=== PATIENT | male | born 1975 | race Caucasian/White ===

== ENCOUNTER 2023-07-13 14:04 | Emergency (ER) | payer SELFPAY ==
[2023-07-13 14:13] VITALS: BP 184/102; PULSE 85; RESP 16; TEMP 36.5; O2SAT 99; BMI 25.0
--- NOTE | 2023-07-13 14:28 | DI.RAD.S_ITS ---
PROCEDURE: XR SHOULDER LT MIN 2V INDICATIONS: fall 8 ft, shoulder/scapula pain TECHNIQUE: 3 views of the shoulder were acquired. COMPARISON: [facility], CR, XR CLAVICLE LT, 07/13/2023, 14:29. FINDINGS: Bones: There is a comminuted, displaced left clavicular diaphyseal fracture. The scapula and the proximal humerus appear intact. There is a displaced lateral left 3rd rib fracture and a displaced posterior left 4th rib fracture. There may be a minimally displaced 5th rib fracture is well. Soft tissues: No suspicious soft tissue calcifications. No pneumothorax visualized. IMPRESSION: 1. Comminuted displaced left femoral diaphyseal clavicular fracture. 2. Displaced left 3rd and 4th rib fractures and possible posterior 5th rib fracture. 3. No pneumothorax. Dictated by: Rossy Canales M.D. on 07/13/2023 at 15:28 Approved by: Rossy Canales M.D. on 07/13/2023 at 15:31
--- NOTE | 2023-07-13 14:28 | DI.CT.S_ITS ---
PROCEDURE: CT HEAD/BRAIN WO CON INDICATIONS: FALL 8FT WITH L HEAD TRAUMA TECHNIQUE: Noncontrast 4.5 mm thick angled axial sections acquired from the foramen magnum to the vertex, with coronal and sagittal reformats. For radiation dose reduction, the following was used: automated exposure control, adjustment of mA and/or kV according to patient size. COMPARISON: [facility], CR, XR SHOULDER LT MIN 2V, 07/13/2023, 14:29. [facility], CR, XR CLAVICLE LT, 07/13/2023, 14:29. FINDINGS: Image quality: Excellent. CSF spaces: Basal cisterns are patent. No extra-axial fluid collections. Ventricles are normal in size and shape. Brain: There is a likely small amount of subarachnoid hemorrhage involving the superior left frontal lobe, as on series 2, image 26 and on series 5, image 18. No midline shift. No intracranial masses. Montero-white matter interface is normal. Skull and face: At least moderate hematoma can be seen involving the left parietal region. No underlying calvarial fracture is seen. Calvarium and visualized facial bones are intact, without suspicious lesions. Sinuses: Visualized sinuses and mastoids are clear. IMPRESSION: There is a likely small amount of subarachnoid hemorrhage involving the superior left frontal lobe. - Please consider short-term follow-up in approximately 6 hours. There is a left posterior scalp hematoma seen, without an associated calvarial fracture. Note: Case discussed by telephone with Dr. Yates at 3:04 p.m. [place] time on July 13, 2023. Dictated by: Nir Gomes M.D. on 07/13/2023 at 14:01 Approved by: Nir Gomes M.D. on 07/13/2023 at 14:05
--- NOTE | 2023-07-13 14:28 | DI.RAD.S_ITS ---
PROCEDURE: XR CLAVICLE LT INDICATIONS: fall 8ft, clavicle pain TECHNIQUE: 2 views of the clavicle were acquired. COMPARISON: None. FINDINGS: Bones: There is a comminuted, displaced fracture of the left clavicular diaphysis. Soft tissues: No suspicious soft tissue calcifications. IMPRESSION: Comminuted, displaced left clavicular diaphyseal fracture. Dictated by: Rossy Canales M.D. on 07/13/2023 at 15:21 Approved by: Rossy Canales M.D. on 07/13/2023 at 15:23
--- NOTE | 2023-07-13 14:29 | ED.TRAUMA ---
HPI - Trauma General Chief Complaint: Extremity Injury, Upper Stated Complaint: fell off room possible broke collar bone shoulder Time Seen by Provider: 07/13/23 14:18 Source: patient Mode of arrival: Ambulatory History of Present Illness HPI narrative: 48-year-old male with no reported past medical history presents by private vehicle for head injury that occurred at approximately 9:00 a.m. patient is a fish smoker and his boots slipped on slippery material and he fell approximately 8 ft, hitting his left shoulder and left head against the ground. Denies loss of consciousness, denies use of blood thinners. Patient states his primary concern is left shoulder pain in his concerned he may have broken his collarbone. Denies numbness, weakness, tingling, headache, blurred vision, neck pain, any other complaints at this time. Related Data Previous Rx's Medication Instructions Recorded hydrocodone 5 mg-acetaminophen 325 1 tab PO Q6H PRN pain #14 tabs 07/13/23 mg tablet methocarbamol 750 mg tablet 750 mg PO TID #30 tabs 07/13/23 Allergies Allergy/AdvReac Type Severity Reaction Status Date / Time No Known Drug Allergies Allergy Verified 07/13/23 14:21 Review of Systems Review of Systems Narrative: Negative except as noted above Patient History Social History Smoking Status: Current every day smoker Smoking Status: Current every day smoker tobacco type: cigarettes Substance Use Type: marijuana Exam Initial Vital Signs Initial Vital Signs: Vital Signs Temperature 97.7 F 07/13/23 14:13 Pulse Rate 85 07/13/23 14:13 Respiratory Rate 16 07/13/23 14:13 Blood Pressure 184/102 H 07/13/23 14:13 Pulse Oximetry 99 07/13/23 14:13 Oxygen Delivery Method Room Air 07/13/23 14:13 Const: Awake, alert, no acute distress, nontoxic appearing Head: Scalp contusion left parietal scalp Eyes: PERRL, EOMI, conjunctiva normal Cardiac: regular rate, regular rhythm RESP: unlabored, clear bilaterally, no wheezing GI: Atraumatic, soft, nontender, nondistended, no rebound, no guarding MSK: TTP over L clavicular region, decreased ROM L shoulder due to pain. 2+ radial pulses, sensation intact and equal Skin: Warm, Dry, intact, no rashes Neuro: AO x3, CN II-XII grossly intact, moves all extremities Psych: affect normal, mood normal, not suicidal, not homicidal Scores Slovak CT Head Rule Dangerous Mechanism (pedestrian vs. mv, occupant ejected from mv, fall from >3 ft or > 5 stairs): Yes Course Course Course Narrative: Overall well-appearing patient with head injury and shoulder pain after a fall approximately 8 ft. Since the fall was 8 ft he does score moderate risk on Slov[place] head CT rule and it is recommend to obtain a CT scan. We will give pain medications and XR imaging of shoulder/clavicle Orders Ordered: Discontinued Medications Hydrocodone Bitart/Acetaminophen (Hydrocodone/Acet 5/325 Tablet) 2 tab PO NOW ONE Stop: 07/13/23 14:29 Last Admin: 07/13/23 14:32 Dose: 2 tab Documented By: ALEXANDREA Reevaluation(s) Reevaluation #1: Patient resting comfortably in bed, there is a displaced clavicle fracture on the left-hand side, subsequently placed in sling. There also appeared to be some left-sided broken ribs, however patient states that he is broken those ribs previously and he does not have pain in the indicated region on the chest x-ray. I received a call from Radiology stating that the CT of the head was concerning for possible very small subarachnoid hemorrhage. Radiology recommended repeat CT in 6 hours to assess for spread. CT results discussed with patient, he states that he can not stay 6 hours for a repeat scan because if he does not he will lose his ride, and he lives in [facility] [place]. I explained risks of leaving before a repeat CT scan could be obtained including worsening bleeding, neurologic dysfunction, and even . Patient states that he understands his risks and still does not want to stay for repeat scan. He says he is no headache, no blurred vision, he really only came to get his collar bone evaluated. Patient was strongly recommended that if he develops any headache, blurred vision, numbness, weakness, any other complaints he should go immediately to the nearest emergency department if he is insistent on going home. Pain medications and muscle relaxers sent to pharmacy. He was also counseled that when he returns to his hometown he should follow up immediately with Orthopedic surgery to ensure appropriate healing of the clavicle. Patient has a friend at bedside, who is aware of the patient's diagnosis and agrees to monitor the patient. Vital Signs Vital signs: Vital Signs - 8 hr 07/13/23 14:13 07/13/23 15:01 07/13/23 15:08 Temperature 97.7 F Pulse Rate 85 76 Pulse Rate [Left Radial] 78 Respiratory Rate 16 18 Blood Pressure 184/102 H 160/82 H Pulse Oximetry 99 98 Oxygen Delivery Method Room Air Room Air 07/13/23 15:55 Temperature Pulse Rate 86 Pulse Rate [Left Radial] Respiratory Rate Blood Pressure 166/103 H Pulse Oximetry 99 Oxygen Delivery Method Room Air MDM - Trauma Differential Diagnosis Differential diagnosis: Likely fracture of face bones and other (subdural hematoma, clavicle fracture) Discharge Plan Departure Patient Disposition: Left Against Medical Advice Clinical Impression: Broken clavicle, Subarachnoid hemorrhage, Fracture of rib, Left against medical advice Instructions: DI for Clavicle Fracture-Adult, DI for Stroke-Subarachnoid Hemorrhage Activity Restrictions/Additional Instructions: PLEASE MAKE SURE THAT YOU FOLLOW UP WITH AN ORTHOPEDIC SURGEON IN YOUR HOMETOWN. PLEASE RETURN TO THE NEAREST EMERGENCY DEPARTMENT IMMEDIATELY IF YOU NOTICE SEVERE HEADACHE, VOMITING, BLURRED VISION, SHORTNESS OF BREATH, OR WORSENING PAIN. Prescriptions: New hydrocodone-acetaminophen 5-325 mg tablet 1 tab PO Q6H PRN (Reason: pain) Qty: 14 0RF methocarbamol 750 mg tablet 750 mg PO TID Qty: 30 0RF Stand Alone Forms: Patient Portal/API, Against Medical Advice
[2023-07-13] MEDS: HYDROCODONE/ACET 5/325 TABLET 2 TAB PO (14:32)
[2023-07-13 15:01] VITALS: PULSE 78
--- NOTE | 2023-07-13 15:01 | DI.RAD.S_ITS ---
PROCEDURE: XR RIBS LT MIN 3V W CXR1V INDICATIONS: fall 8 ft roof, poss rib fx TECHNIQUE: 2 views of the left ribs were acquired, along with a single view chest. COMPARISON: None. FINDINGS: Motion artifact limits evaluation. Surgical changes and devices: None. Bones and chest wall: There are likely fractures of the lateral left 2nd, 3rd, and 4th ribs. Lungs and pleura: No pleural effusions or pneumothorax. Lungs appear clear. Mediastinum: Mediastinal contours appear normal. Heart size is normal. IMPRESSION: Displaced lateral left 2nd, 3rd, and 4th rib fractures. No pneumothorax. Dictated by: Rossy Canales M.D. on 07/13/2023 at 15:38 Approved by: Rossy Canales M.D. on 07/13/2023 at 15:40
[2023-07-13 15:08] VITALS: BP 160/82; PULSE 76; RESP 18; O2SAT 98
--- NOTE | 2023-07-13 15:09 | PC.NURSE ---
Pt ambulatory, AOx4, talking in room with his friend, laughing. States the fall was this morning @ 0900. He was helping a friend take measurements.
[2023-07-13 15:55] VITALS: BP 166/103; PULSE 86; O2SAT 99
== END 2023-07-13 15:55 | disposition left against medical advice (07) ==
PROVIDERS: Emergency Provider Emergency Medicine
DX: S42.022A Displaced fracture of shaft of left clavicle, initial encounter for closed fracture (principal); S22.42XA Multiple fractures of ribs, left side, initial encounter for closed fracture; S06.6X0A Traumatic subarachnoid hemorrhage without loss of consciousness, initial encounter; W13.2XXA Fall from, out of or through roof, initial encounter; Y93.H3 Activity, building and construction; Y92.009 Unspecified place in unspecified non-institutional (private) residence as the place of occurrence of the external cause; Z53.29 Procedure and treatment not carried out because of patient's decision for other reasons
CPT/HCPCS: 70450; 71101; 73000; 73030; 99283; 99284